=== PATIENT | female | born 1990 ===

== ENCOUNTER → 2021-12-31 | Outpatient (CLI) | payer BC ==
--- NOTE | 2022-01-01 02:37 | RAD ---
INDICATION: Reason: LT LAT RIBCAGE LUMP / Spl. Instructions: / History: COMPARISON: None. IMPRESSION: Soft tissue ultrasound: Focused ultrasound images are obtained of the left lateral rib cage region at the area of lump. Within the soft tissues there is a 34 x 26 x 10 mm heterogenous mass seen within the area with some i nternal vascularity. Similar echogenicity to the adjacent fat. This could be secondary to causes such as a lipoma but given the internal vascularity it may be helpful to obtain a follow-up CT or MRI to further assess and ensure that there is not a higher grade solid component. Alternatively a follow-up ultrasound could be obtained in a few months to ensure no growth. Electronically signed by: Solis Hardy MD (12/31/2021 5:13 PM) [id number]
== END ==
LOC: US 12:48
PROVIDERS: ATTEND Obstetrics & Gynecology
DX: M79.89 Other specified soft tissue disorders (principal)
CPT/HCPCS: 76881